=== PATIENT | female | born 1995 | race Caucasian/White ===

== ENCOUNTER 2018-08-07 21:11 | Emergency (ER) | payer BC, OTHER ==
[2018-08-07 21:15] VITALS: TEMP 98.6
[2018-08-07] MEDS ORDERED: ORPHENADRINE 30 MG/ML 2 ML VIAL IM STA (21:52)
[2018-08-07] MEDS ORDERED: KETOROLAC 30 MG/ML 1 ML VIAL IM STA (21:52)
--- NOTE | 2018-08-07 21:55 | ED ---
General Adult HPI - General Source: patient, RN notes reviewed Mode of arrival: ambulatory Limitations: no limitations <Kirit Xavier P - Last Filed: 08/07/18 23:22> <Silva Rodriguez P - Last Filed: 08/08/18 04:44> - General Chief complaint: Back Pain/Injury Stated complaint: [facility] Back Pain Time Seen by Provider: 08/07/18 21:28 - History of Present Illness Initial comments: 22-year-old female presents to the emergency department for a chief complaint of low back times one day. 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 Patient states that she immediately took Motrin and did feel better. She states that later in the day about one hour ago she bent down to pick something up and felt an immediate pain in her lumbar spine. Patient said she does have a history of scoliosis and is concerned this may have complicated this. Patient denies chance of . She denies any other injuries. She denies hitting her head. Patient has no other complaints at this time including shortness of breath, chest pain, abdominal pain, nausea or vomiting, headache, or visual changes. ( Kirit Xavier) - Related Data Home Medications Medication Instructions Recorded Confirmed Albuterol Sulfate [Proair Hfa] 1 - 2 puff INHALATION RT-Q6H PRN 08/07/18 Etonogestrel/Ethinyl Estradiol 1 ring VAGINAL Q21D 08/07/18 08/07/18 [Nuvaring Vaginal Ring] Montelukast [Singulair] 10 mg PO DAILY 08/07/18 08/07/18 Previous Rx's Medication Instructions Recorded Cyclobenzaprine [Flexeril] 5 mg PO TID #12 tablet 08/07/18 Ibuprofen [Motrin] 600 mg PO Q8HR PRN #20 tab 08/07/18 Allergies Allergy/AdvReac Type Severity Reaction Status Date / Time ciprofloxacin [From Cipro] Allergy Rash/Hives Verified 08/07/18 21:40 ciprofloxacin HCl Allergy Rash/Hives Verified 08/07/18 21:40 [From Cipro] Review of Systems ROS Other: All systems not noted in ROS Statement are negative. <Kirit Xavier P - Last Filed: 08/07/18 23:22> ROS Other: All systems not noted in ROS Statement are negative. <Silva Rodriguez P - Last Filed: 08/08/18 04:44> ROS Statement: Those systems with pertinent positive or pertinent negative responses have been documented in the HPI. Past Medical History Past Medical History: No Reported History Additional Past Medical History / Comment(s): ADHD History of Any Multi-Drug Resistant Organisms: None Reported Past Surgical History: Orthopedic Surgery Additional Past Surgical History / Comment(s): achilles lengthened Past Psychological History: No Psychological Hx Reported Smoking Status: Never smoker Past Alcohol Use History: Occasional Past Drug Use History: None Reported - Past Family History Mother Family Medical History: No Reported History <Kirit Xavier P - Last Filed: 08/07/18 23:22> General Exam Limitations: no limitations General appearance: alert, in no apparent distress Head exam: Present: atraumatic, normocephalic, normal inspection Eye exam: Present: normal appearance, PERRL, EOMI. Absent: scleral icterus, conjunctival injection, periorbital swelling ENT exam: Present: normal exam, normal oropharynx, mucous membranes moist, TM's normal bilaterally, normal external ear exam Neck exam: Present: normal inspection, full ROM. Absent: tenderness, meningismus, lymphadenopathy Respiratory exam: Present: normal lung sounds bilaterally. Absent: respiratory distress, wheezes, rales, rhonchi, stridor Cardiovascular Exam: Present: regular rate, normal rhythm, normal heart sounds. Absent: systolic murmur, diastolic murmur, rubs, gallop, clicks GI/Abdominal exam: Present: soft, normal bowel sounds. Absent: distended, tenderness, guarding, rebound, rigid Extremities exam: Present: normal capillary refill (Blurry refill less than 2 seconds and DP pulses 2+ in bilateral lower extremities) Back exam: Present: vertebral tenderness (Minimal lumbar spine tenderness. Right sided paraspinal tenderness evident.). Absent: full ROM (Patient has about 60 lumbar flexion.) Neurological exam: Present: alert, oriented X3, CN II-XII intact Psychiatric exam: Present: normal affect, normal mood <Kirit Xavier P - Last Filed: 08/07/18 23:22> Vital Signs 08/07/18 08/07/18 21:12 23:32 Temperature 98.6 F 98.6 F Pulse Rate 104 H 80 Respiratory 18 16 Rate Blood Pressure 147/79 118/86 O2 Sat by Pulse 97 96 Oximetry Medical Decision Making <Kirit Xavier P - Last Filed: 08/07/18 23:22> <Silva Rodriguez P - Last Filed: 08/08/18 04:44> - Medical Decision Making 22-year-old female since to the emergency department for a chief complaint of low back pain times one day. Patient was bending over another patient when she felt a sudden pain in her back. Patient states took Motrin and it felt better but started to hurt again shortly afterwards when she bent down to pick something up. No bladder or bowel changes. No saddle anesthesia. On exam patient has minimal tenderness of the lumbar spine. Mild tenderness noted to the right low back. Neurovascular intact in lower extremities bilaterally. I did recommend test before x-ray the patient refuses and denies any chance of . X-ray of the lumbar spine shows a normal exam. Vertebra have normal spacing and alignment. SI joints appear normal. Patient was given Toradol and Norflex in the emergency department which did help with her pain. She will continue Tylenol or Motrin at home and Flexeril. She was educated not to work, operate machinery, or drive while taking Flexeril. She will return to the emergency Department if she has any worsening symptoms including bladder or bowel changes or saddle anesthesia. Otherwise she will follow up with primary care in 1-2 days. (Kirit Xavier) I was available for consultation in the emergency department. The history and physical exam were done by the midlevel provider. I was consulted for this patient's care. I reviewed the case with the midlevel provider and based on their presentation of the patient, I agree with the assessment, medical decision making and plan of care as documented. (Silva Rodriguez) Disposition Is patient prescribed a controlled substance at d/c from ED?: No Time of Disposition: 23:05 <Kirit Xavier P - Last Filed: 08/07/18 23:22> <Silva Rodriguez P - Last Filed: 08/08/18 04:44> Clinical Impression: Mechanical back pain Disposition: HOME SELF-CARE Condition: Good Instructions: Acute Low Back Pain (ED) Additional Instructions: Please take Motrin for pain. Please take Flexeril but do not drive or operate machinery while taking Flexeril. Please follow-up with primary care in 1-2 days. Return to the emergency department if you have any worsening symptoms. Prescriptions: Cyclobenzaprine [Flexeril] 5 mg PO TID #12 tablet Ibuprofen [Motrin] 600 mg PO Q8HR PRN #20 tab PRN Reason: Pain Referrals: Mario Quevedo MD [Primary Care Provider] - 1-2 days
--- NOTE | 2018-08-07 22:29 | XR ---
EXAMINATION TYPE: XR lumbar spine 2 or 3V DATE OF EXAM: 08/07/2018 COMPARISON: NONE HISTORY: Back pain TECHNIQUE: 3 views FINDINGS: Vertebra have normal spacing and alignment. Posterior elements appear intact. Sacroiliac gucci ints appear normal. IMPRESSION: Normal lumbar spine exam.
[2018-08-07 23:33] VITALS: BP 118/86; PULSE 80; RESP 16
== END 2018-08-07 23:33 | disposition home or self-care (01) ==
LOC: EC 21:11
DX: M54.5 Low back pain (principal); Z87.39 Personal history of other diseases of the musculoskeletal system and connective tissue; Z98.890 Other specified postprocedural states; Z79.3 Long term (current) use of hormonal contraceptives; Z79.899 Other long term (current) drug therapy; X50.0XXA Overexertion from strenuous movement or load, initial encounter; Y92.69 Other specified industrial and construction area as the place of occurrence of the external cause; Y99.0 Civilian activity done for income or pay; Y93.F2 Activity, caregiving, lifting
CPT/HCPCS: 72100; 99283; 96372 ×2; J2360; J1885

== ENCOUNTER → 2019-04-20 | Outpatient (CLI) | payer BC ==
[2019-04-20 12:34] LABS: Basophils # (A) 0.1 k/uL (0-0.2); Basophils % (A) 1 %; Eosinophils # (A) 0.1 k/uL (0-0.7); Eosinophils % (A) 2 %; Lymphocytes # (A) 1.9 k/uL (1.0-4.8); Lymphocytes % (A) 24 %; MCH 28.5 pg (25.0-35.0); MCHC 34.2 g/dL (31.0-37.0); MCV 83.4 fL (80.0-100.0); Mean Platelet Volume 7.4; Monocytes # (A) 0.4 k/uL (0-1.0); Monocytes % (A) 5 %; Neutrophils # (A) 5.1 k/uL (1.3-7.7); Neutrophils % (A) 66 %; Platelet Count 243 k/uL (150-450); RBC 4.92 m/uL (3.80-5.40); WBC 7.8 k/uL (3.8-10.6)
[2019-04-20 16:14] LABS: African American GFR (CKD) 120.4 (60.0-200.0); Albumin 4.5 g/dL (3.80-4.90); Albumin/Globulin Ratio 2.14 (1.60-3.17); Anion Gap 7.8 mmol/L (4.00-12.00); BUN/Creat Ratio 12.5 Ratio (12.00-20.00); Bilirubin, Conjugated 0.2 mg/dL (0.20-0.40); Bilirubin,Unconjugated 0.5 mg/dL; Calcium 9.7 mg/dL (8.7-10.3); Carbon Dioxide 27.2 mmol/L (21.6-31.8); Globulin 2.1 g/dL (1.6-3.3); LDL Cholesterol,Calculated 51.4 mg/dL (0.0-131.0); Potassium 4.4 mmol/L (3.5-5.5); Total Bilirubin 0.7 mg/dL (0.2-1.2); Total Protein 6.6 g/dL (6.2-8.2); VLDL Calculation 26.6 mg/dL (5.00-40.00)
[2019-04-20 18:36] LABS: Hemoglobin A1C 4.6 % (4.0-6.0)
== END | disposition home or self-care (01) ==
LOC: LABWHC1 11:56
PROVIDERS: ATTEND Internal Medicine Critical Care Medicine
DX: Z00.00 Encounter for general adult medical examination without abnormal findings (principal)
CPT/HCPCS: 36415; 80053; 80061; 82248; 83036; 84439; 84443; 85025

== ENCOUNTER 2019-06-14 04:44 | Emergency (ER) | payer BC ==
[2019-06-14 04:52] VITALS: TEMP 97.6
[2019-06-14] MEDS ORDERED: PHENAZOPYRIDINE 100 MG TAB PO ONE (05:15)
[2019-06-14 05:32] LABS: RBC,Urine >182 /hpf (0-5); Squamous Epithelial Cell,Urine 4 /hpf (0-4); WBC,Urine >182 /hpf (0-5)
[2019-06-14] MEDS ORDERED: CEPHALEXIN 500MG STARTER PACK 4 CAP BTL PO STA (05:49)
--- NOTE | 2019-06-14 05:52 | ED ---
Female Urogenital HPI - General Chief complaint: Urogenital Stated complaint: Blood in Urine Time Seen by Provider: 06/14/19 04:57 Source: patient Mode of arrival: ambulatory Limitations: no limitations - History of Present Illness Initial comments: Patient is 23-year-old woman who presents with complaint that she is having hematuria and dysuria. This been going on over the course of today getting worse towards the evening. Patient denies fever or chills. No abdominal pain, vomiting or diarrhea. MD Complaint: dysuria Onset/Timin -: days(s) Location: labia Radiation: non-radiating Severity: moderate Quality: other (Burning) Consistency: intermittent Improves with: none Worsens with: urination Patient : No - Related Data Home Medications Medication Instructions Recorded Confirmed Albuterol Sulfate [Proair Hfa] 1 - 2 puff INHALATION RT-Q6H PRN 08/07/18 06/14/19 Montelukast [Singulair] 10 mg PO DAILY 08/07/18 06/14/19 Albuterol Inhaler [Ventolin Hfa 1 - 2 puff INHALATION RT-Q6H PRN 06/14/19 06/14/19 Inhaler] Previous Rx's Medication Instructions Recorded Cephalexin [Keflex] 500 mg PO Q8HR #30 cap 06/14/19 Fluconazole [Diflucan] 150 mg PO ONCE #1 tab 06/14/19 Phenazopyridine [Pyridium] 100 mg PO TID #6 tablet 06/14/19 Allergies Allergy/AdvReac Type Severity Reaction Status Date / Time ciprofloxacin [From Cipro] Allergy Rash/Hives Verified 08/07/18 21:40 ciprofloxacin HCl Allergy Rash/Hives Verified 08/07/18 21:40 [From Cipro] Review of Systems ROS Statement: Those systems with pertinent positive or pertinent negative responses have been documented in the HPI. ROS Other: All systems not noted in ROS Statement are negative. Constitutional: Denies: fever, chills Respiratory: Denies: cough, dyspnea Cardiovascular: Denies: chest pain, palpitations, edema Gastrointestinal: Denies: abdominal pain, nausea, vomiting, diarrhea Genitourinary: Reports: dysuria, hematuria. Denies: frequency, discharge, abnormal menses Musculoskeletal: Denies: back pain Skin: Denies: rash, lesions Neurological: Denies: headache, weakness, numbness Past Medical History Past Medical History: Asthma Additional Past Medical History / Comment(s): ADHD History of Any Multi-Drug Resistant Organisms: None Reported Past Surgical History: Orthopedic Surgery Additional Past Surgical History / Comment(s): achilles lengthened Past Psychological History: No Psychological Hx Reported Smoking Status: Never smoker Past Alcohol Use History: Occasional Past Drug Use History: None Reported - Past Family History Mother Family Medical History: No Reported History General Exam Limitations: no limitations General appearance: alert, in no apparent distress Respiratory exam: Present: normal lung sounds bilaterally. Absent: respiratory distress, wheezes, rales, rhonchi, stridor Cardiovascular Exam: Present: regular rate, normal rhythm, normal heart sounds. Absent: systolic murmur, diastolic murmur, rubs, gallop GI/Abdominal exam: Present: soft, normal bowel sounds. Absent: distended, tenderness, guarding, rebound, rigid, mass Extremities exam: Present: normal inspection, normal capillary refill. Absent: pedal edema, calf tenderness Back exam: Present: normal inspection. Absent: CVA tenderness (R), CVA tenderness (L) Neurological exam: Present: alert Skin exam: Present: warm, dry, intact, normal color. Absent: rash Course Vital Signs 06/14/19 06/14/19 04:50 06:25 Temperature 97.6 F 97.6 F Pulse Rate 99 98 Respiratory 20 18 Rate Blood Pressure 128/93 128/92 O2 Sat by Pulse 99 100 Oximetry Medical Decision Making - Lab Data Lab Results 06/14/19 06/14/19 Range/Units 05:06 05:06 Urine Color Dark Red Urine Appearance Turbid H (Clear) Urine RBC >182 H (0-5) /hpf Urine WBC >182 H (0-5) /hpf Urine WBC Clumps Few H (None) /hpf Ur Squamous Epith Cells 4 (0-4) /hpf Urine HCG, Qual Not Detected (Not Detectd) Disposition Clinical Impression: Urinary tract infection Disposition: HOME SELF-CARE Condition: Fair Instructions (If sedation given, give patient instructions): Urinary Tract Infection in Women (ED) Prescriptions: Fluconazole [Diflucan] 150 mg PO ONCE #1 tab Cephalexin [Keflex] 500 mg PO Q8HR #30 cap Phenazopyridine [Pyridium] 100 mg PO TID #6 tablet Is patient prescribed a controlled substance at d/c from ED?: No Referrals: Mario Quevedo MD [Primary Care Provider] - 1-2 days
[2019-06-14 05:53] LABS: Appearance,Urine Turbid (Clear)
[2019-06-14 05:54] LABS: Color,Urine Dark Red
[2019-06-14] MEDS ORDERED: ONDANSETRON ODT 4 MG TAB PO STA (05:55)
[2019-06-14] MEDS ORDERED: ONDANSETRON 4 MG ODT STARTER PACK 2 TAB BTL PO STA (06:17)
[2019-06-14 06:28] VITALS: BP 128/92; PULSE 98; RESP 18
== END 2019-06-14 06:21 | disposition home or self-care (01) ==
LOC: EC 04:44
DX: N39.0 Urinary tract infection, site not specified (principal); J45.909 Unspecified asthma, uncomplicated; Z79.899 Other long term (current) drug therapy; Z88.1 Allergy status to other antibiotic agents
CPT/HCPCS: 81001; 81025; 87086; 87077; 87186; 99283; S0119

== ENCOUNTER → 2019-07-16 | Outpatient (CLI) | payer BC | END | disposition home or self-care (01) | LOC: CPPFTMAIN 10:36 | PROVIDERS: ATTEND Internal Medicine Critical Care Medicine | DX: J45.909 Unspecified asthma, uncomplicated (principal) | CPT/HCPCS: 94010; 94060; 94726 ==